=== PATIENT | male | born 1975 | race African-American/Black ===

== ENCOUNTER 2016-07-23 09:45 | Emergency (ER) | payer BC ==
[2016-07-23 10:49] VITALS: BP 149/90
--- NOTE | 2016-07-23 11:18 | UC ---
Shoulder Pain HPI - HPI Summary HPI Summary: The patient comes in today for: 1. Right shoulder pain: Onset: 2-3 hours ago. Palliative/provocative: Movement makes it worse. Quality: Ache. Region: Right shoulder. Severity: 5/10 Time: Constant. Associated symptoms: Event: He ran into a door frame at [employer] Rx: None. Previous shoulder problems on the right: None. * - History of Current Complaint Chief Complaint: UCUpperExtremity Stated Complaint: RIGHT SHOULDER INJURY Time Seen by Provider: 07/23/16 11:13 Hx Obtained From: Patient - Allergies/Home Medications Allergies/Adverse Reactions: Allergies Allergy/AdvReac Type Severity Reaction Status Date / Time Acetaminophen Allergy Intermediate Nausea Verified 07/23/16 10:49 [From Tylenol with Codeine #3] Codeine Allergy Intermediate Nausea Verified 07/23/16 10:49 [From Tylenol with Codeine #3] Penicillins Allergy Rash Verified 07/23/16 10:49 Bee stings Allergy Swelling Uncoded 07/23/16 10:49 Of Face,Lips,& Throat seasonal allergies Allergy Congestion Uncoded 07/23/16 10:49 Home Medications: Home Medications Simvastatin [Zocor 40 MG (NF)] 1 tab PO QPM 07/23/16 [History Confirmed 07/23/16 ] PMH/Surg Hx/FS Hx/Imm Hx Previously Healthy: No Endocrine History Of: Reports: Dyslipidemia Denies: Diabetes, Thyroid Disease, Hyperthyroidism, Hypothyroidism Cardiovascular History Of: Denies: Cardiac Disorders, Hypertension, Pacemaker/ICD, Myocardial Infarction , Congestive Heart Failure, Atrial Fibrillation, Deep Vein Thrombosis, Bleeding Disorders Respiratory History Of: Denies: COPD, Asthma, Bronchitis, Pneumonia, Pulmonary Embolism GI/ History Of: Denies: Gastroesophageal Reflux, Ulcer, Gastrointestinal Bleed, Gall Bladder Disease, Kidney Stones, Diverticulitis, Renal Disease, Urosepsis Neurological History Of: Reports: Migraine - "every now and then." Denies: TIA, CVA, Dementia, Seizures Psychological History Of: Denies: Anxiety, Depression, Bipolar Disorder, Schizophrenia, Post Traumatic Stress Disorder Cancer History Of: Denies: Lung Cancer, Colorectal Cancer, Breast Cancer, Prostate Cancer, Cervical Cancer Other History Of: Negative For: HIV, Hepatitis B, Hepatitis C, Anticoagulant Therapy - Surgical History Surgical History: Yes Surgery Procedure, Year, and Place: Left arm lumps age 20 - Family History Known Family History: Positive: Cardiac Disease, Hypertension, Diabetes - Social History Occupation: Employed Full-time Alcohol Use: Rare Substance Use Type: None Smoking Status (MU): Never Smoked Tobacco - Immunization History Most Recent Influenza Vaccination: Feb 2015 Review of Systems Constitutional: Negative Skin: Negative Eyes: Negative ENT: Negative Respiratory: Negative Cardiovascular: Negative Gastrointestinal: Negative Genitourinary: Negative Musculoskeletal: Arthralgia, Myalgia All Other Systems Reviewed And Are Negative: Yes Physical Exam Triage Information Reviewed: Yes Appearance: Well-Appearing, No Pain Distress - when sitting still., Well- Nourished Vital Signs: Initial Vital Signs Temp 98.8 F 07/23/16 10:40 Pulse 78 07/23/16 10:40 Resp 18 07/23/16 10:40 BP 149/90 07/23/16 10:40 Pulse Ox 100 07/23/16 10:40 Vital Signs Reviewed: Yes Eyes: Positive: Conjunctiva Clear. Negative: Discharge ENT: Positive: Hearing grossly normal, Pharynx normal, Pharyngeal erythema, TMs normal, TM bulging, TM dull. Negative: Tonsillar swelling, Tonsillar exudate Dental: Negative: Gross Decay/Caries @, Dental Fracture @ Neck: Positive: Supple, Nontender, No Lymphadenopathy. Negative: Nuchal Rigidity Respiratory: Positive: Chest non-tender, Lungs clear, No respiratory distress, No accessory muscle use, Rhonchi, Wheezing Cardiovascular: Positive: RRR, No Murmur Abdomen Description: Positive: Nontender, No Organomegaly, Soft, Distended, Guarding Musculoskeletal: Positive: ROM Limited @, Other: - Right shoulder: There is no ecchymosis, no edema. He is tender over the medial shoulder (medial deltoid), and some soreness along the clavicle, but no masses, hematomas. There was no tenderness of the sub-deltoid bursa area, or of the biceps tendon. There is tenderness to the trapezius, but again no masses or ecchymosis. There is reduction of abduction. NVI. Neurological: Positive: Alert, Muscle Tone Normal Psychological: Positive: Age Appropriate Behavior, Consolable Skin: Negative: rashes, breakdown Diagnostics - Radiology No standard instances Xray Interpretation: No Acute Changes - Right shoulder and clavicle. Radiology Interpretation Completed By: Radiologist Shoulder Course/Dx - Course Course Of Treatment: Patient told of his treatment options. He is to use a sling, take NSAIDS and see his primary care provider later this week. - Differential Dx/Diagnosis Differential Diagnosis/HQI/PQRI: Arthritis, Fracture (Closed), Sprain Provider Diagnoses: Right shoulder contusion. HIgh blood pressure. Discharge - Discharge Plan Condition: Stable Disposition: HOME Patient Education Materials: Shoulder Sprain (ED), Contusion in Adults (ED) Forms: *Work Release Referrals: Estevan Scruggs MD [Primary Care Provider] - (Please see your primary care provider later this week to see how well you are doing and to check your blood pressure. )
[2016-07-23] MEDS ORDERED: Naproxen TAB* 250 MG PO ONE (11:29)
--- NOTE | 2016-07-23 11:52 | RAD ---
HISTORY: Right shoulder pain, trauma COMPARISONS: None VIEWS: 3, Frontal internal rotation, external rotation, and outlet views of the right shoulder FINDINGS: BONE DENSITY: Normal. BONES: There is no displaced fracture. JOINTS: There is no arthropathy. ALIGNMENT: There is no dislocation. SOFT TISSUES: Unremarkable. OTHER FINDINGS: None. IMPRESSION: NO ACUTE OSSEOUS INJURY. IF SYMPTOMS PERSIST, RECOMMEND REPEAT IMAGING.
--- NOTE | 2016-07-23 11:53 | RAD ---
HISTORY: Right shoulder pain and trauma COMPARISONS: None VIEWS: 2, frontal and frontal oblique views of the right clavicle FINDINGS: BONE DENSITY: Normal. BONES: There is no displaced fracture. JOINTS: There is no arthropathy. ALIGNMENT: There is no dislocation. SOFT TISSUES: Unremarkable. OTHER FINDINGS: None. IMPRESSION: NO ACUTE OSSEOUS INJURY. IF SYMPTOMS PERSIST, RECOMMEND REPEAT IMAGING.
== END 2016-07-23 12:18 | disposition home or self-care (01) ==
LOC: UCCORT 09:45
DX: S40.011A Contusion of right shoulder, initial encounter (principal); W22.09XA Striking against other stationary object, initial encounter; Y93.9 Activity, unspecified; Y92.512 Supermarket, store or market as the place of occurrence of the external cause; Z88.6 Allergy status to analgesic agent; Z88.5 Allergy status to narcotic agent; Z88.0 Allergy status to penicillin; E78.5 Hyperlipidemia, unspecified
CPT/HCPCS: 99213; A9270-GY; G0463

== ENCOUNTER 2016-08-23 18:23 | Emergency (ER) | payer BC ==
[2016-08-23 18:40] VITALS: BP 142/93
--- NOTE | 2016-08-23 19:00 | UC ---
Headache HPI - HPI Summary HPI Summary: The patient comes in today for: 1. Headache (left temporal area), left neck "discomfort," and left otalgia: Onset: 1-2 hours ago. Palliative/provocative: Stress makes it worse. Quality: Ache Region: Left head Severity:3/10 Time: Constant. Associated symptoms: The patient states that he is going through turbulent times with his . It is very tense. Treatment: He has not taken anything at this time. * - History Of Current Complaint Chief Complaint: UCGeneralIllness Stated Complaint: ELAVATED BLOOD PRESSURE Time Seen by Provider: 08/23/16 18:52 Hx Obtained From: Patient - Allergies/Home Medications Allergies/Adverse Reactions: Allergies Allergy/AdvReac Type Severity Reaction Status Date / Time Codeine Allergy Intermediate Nausea Verified 08/23/16 18:40 [From Tylenol with Codeine #3] Penicillins Allergy Rash Verified 08/23/16 18:40 Bee stings Allergy Swelling Uncoded 08/23/16 18:40 Of Face,Lips,& Throat seasonal allergies Allergy Congestion Uncoded 08/23/16 18:40 PMH/Surg Hx/FS Hx/Imm Hx Previously Healthy: Yes Endocrine History Of: Reports: Dyslipidemia Denies: Diabetes, Thyroid Disease, Hyperthyroidism, Hypothyroidism Cardiovascular History Of: Denies: Cardiac Disorders, Hypertension, Pacemaker/ICD, Myocardial Infarction , Congestive Heart Failure, Atrial Fibrillation, Deep Vein Thrombosis, Bleeding Disorders Respiratory History Of: Denies: COPD, Asthma, Bronchitis, Pneumonia, Pulmonary Embolism GI/ History Of: Denies: Gastroesophageal Reflux, Ulcer, Gastrointestinal Bleed, Gall Bladder Disease, Kidney Stones, Diverticulitis, Renal Disease, Urosepsis Neurological History Of: Reports: Migraine - "every now and then." Denies: TIA, CVA, Dementia, Seizures Psychological History Of: Denies: Anxiety, Depression, Bipolar Disorder, Schizophrenia, Post Traumatic Stress Disorder Cancer History Of: Denies: Lung Cancer, Colorectal Cancer, Breast Cancer, Prostate Cancer, Cervical Cancer Other History Of: Negative For: HIV, Hepatitis B, Hepatitis C, Anticoagulant Therapy - Surgical History Surgical History: Yes Surgery Procedure, Year, and Place: Left arm lumps age 20 - Family History Known Family History: Positive: Cardiac Disease, Hypertension, Diabetes - Social History Alcohol Use: Rare Substance Use Type: None Smoking Status (MU): Never Smoked Tobacco - Immunization History Most Recent Influenza Vaccination: Feb 2015 Review of Systems Constitutional: Negative Skin: Negative Eyes: Negative ENT: Negative Respiratory: Negative Cardiovascular: Negative Gastrointestinal: Negative Genitourinary: Negative Neurological: Headache All Other Systems Reviewed And Are Negative: Yes Physical Exam Triage Information Reviewed: Yes Appearance: Well-Appearing, No Pain Distress, Well-Nourished Vital Signs: Initial Vital Signs Temp 98.3 F 08/23/16 18:27 Pulse 88 08/23/16 18:27 Resp 20 08/23/16 18:27 BP 142/93 08/23/16 18:27 Pulse Ox 97 08/23/16 18:27 Vital Signs Reviewed: Yes Eyes: Positive: Conjunctiva Clear. Negative: Discharge ENT: Positive: Hearing grossly normal. Negative: Pharyngeal erythema, Nasal congestion, Nasal drainage, TM bulging, TM dull, TM red, Tonsillar swelling, Tonsillar exudate - Ears: TM dsouza and translucent bilaterally. Dental: Negative: Gross Decay/Caries @, Dental Fracture @ Neck: Positive: Supple, Nontender, No Lymphadenopathy, Other: - He had soreness to palpation of the left neck. But, othe than only a few normal-sized, tender lymph nodes, there were no other problems noted--masses or lesions.. Negative: Nuchal Rigidity Respiratory: Positive: Lungs clear, No respiratory distress, No accessory muscle use. Negative: Crackles, Wheezing Cardiovascular: Positive: RRR, No Murmur Abdomen Description: Positive: Nontender, No Organomegaly, Soft. Negative: Distended, Guarding Musculoskeletal: Positive: Strength Intact, ROM Intact, No Edema Neurological: Positive: Alert, Muscle Tone Normal Psychological: Positive: Age Appropriate Behavior, Consolable Skin: Negative: rashes, breakdown Headache Course/Dx - Course Course Of Treatment: Patient was very concerned about the blood pressure value. But, he was given reassurance that even though it is high enough to roman into treatment. He was told to avoid salt, get regular brisk walking/exercise and follow up with his primary care provider. He was given the option of Naproxen for his headache and neck soreness, but he stated that he had naproxen at home which he can use. - Differential Dx/Diagnosis Provider Diagnoses: Headache. high blood pressure. Sore left neck. Discharge - Discharge Plan Condition: Stable Disposition: HOME Patient Education Materials: Hypertensive Crisis (ED), Low Sodium Diet (ED), DASH Eating Plan (ED), General Headache (ED) Referrals: Estevan Scruggs MD [Primary Care Provider] - 1 Week (Please see your primary care provider in about one to two weeks to see how well you are doing. If you get worse, please be seen sooner.)
== END 2016-08-23 19:23 | disposition home or self-care (01) ==
LOC: UCCORT 18:23
DX: R51 Headache (principal); H92.02 Otalgia, left ear; R03.0 Elevated blood-pressure reading, without diagnosis of hypertension; E78.5 Hyperlipidemia, unspecified; Z88.0 Allergy status to penicillin; Z88.5 Allergy status to narcotic agent; Z91.030 Bee allergy status
CPT/HCPCS: 99211; G0463

== ENCOUNTER 2017-06-06 14:19 | Emergency (ER) | payer BC ==
[2017-06-06] MEDS ORDERED: Ketorolac INJ* 60 MG/2 ML VIAL IM ONE (15:32)
[2017-06-06] MEDS ORDERED: Ondansetron ODT TAB* 4 MG PO ONE (15:32)
--- NOTE | 2017-06-06 16:13 | UC ---
Headache HPI - HPI Summary HPI Summary: Pt here w/ GURROLA this morning at 4am. Started on Rt side of head and moving around eye and into central forehead. Dull but constant. Associated sx of nausea and photophobia. Admits to h/o migraines and this feels the same but is lasting longer than usual. Reports he typically takes excederin as soon as sx present and after resting an hour in a dark area, he's better. This time he did not have excederin so took acetaminophen w/o much relief. Believes his triggers could be drinking coffee, lack of water, and/or stress. Denies URI sx otherwise (ie. fever, chills, neck pain/stiffness, rhinorrhea, cough, sneezing, etc) and no neuro deficits. Also concerned as he has a fam h/o HTN. Went to drug store to check BP and it was 148/102. He reports feeling a little better since here and drinking water - BP is in a safe range at this time. Denies change in vision, chest pain, SOB, jaw pain, arm pain, fatigue. No personal h/o HTN, RI, CVA or TIA. - History Of Current Complaint Chief Complaint: UCHeadache Stated Complaint: HEADACHE, NAUSEA Time Seen by Provider: 06/06/17 15:20 Hx Obtained From: Patient Pain Intensity: 7 - Allergies/Home Medications Allergies/Adverse Reactions: Allergies Allergy/AdvReac Type Severity Reaction Status Date / Time codeine Allergy Nausea Verified 06/06/17 15:18 Penicillins Allergy Rash Verified 06/06/17 15:18 Bee stings Allergy Swelling Uncoded 06/06/17 15:18 Of Face,Lips,& Throat seasonal allergies Allergy Congestion Uncoded 06/06/17 15:18 Home Medications: Home Medications Acetaminophen TAB* [Tylenol TAB*] 650 mg PO Q4H PRN 06/06/17 [History Confirmed 06/06/17] PMH/Surg Hx/FS Hx/Imm Hx Previously Healthy: Yes Other History Of: Negative For: HIV, Hepatitis B, Hepatitis C, Anticoagulant Therapy - Surgical History Surgical History: Yes Surgery Procedure, Year, and Place: Left arm lumps age 20 - Family History Known Family History: Positive: Cardiac Disease, Hypertension, Diabetes - Social History Occupation: Employed Full-time Lives: With Family Alcohol Use: Occasionally Substance Use Type: None Smoking Status (MU): Never Smoked Tobacco - Immunization History Most Recent Influenza Vaccination: Feb 2015 Review of Systems Constitutional: Negative Skin: Negative Eyes: Photophobia ENT: Negative Respiratory: Negative Cardiovascular: Negative Gastrointestinal: Nausea Motor: Negative Neurovascular: Negative Musculoskeletal: Negative Neurological: Headache Psychological: Other - stressed Is Patient Immunocompromised?: No All Other Systems Reviewed And Are Negative: Yes Physical Exam Triage Information Reviewed: Yes Appearance: Pain Distress - apepars to be in mild to moderate distress, sitting upright in dark room, Obese Vital Signs: Initial Vital Signs Temp 97.3 F 06/06/17 15:10 Pulse 71 06/06/17 15:10 Resp 16 06/06/17 15:10 BP 136/84 06/06/17 15:10 Pulse Ox 100 06/06/17 15:10 Vital Signs Reviewed: Yes Eyes: Positive: Conjunctiva Clear - mild photophobia ENT Exam: Normal ENT: Positive: Normal ENT inspection, Hearing grossly normal, Pharynx normal, TMs normal. Negative: Nasal congestion, Nasal drainage Dental Exam: Normal Dental: Negative: Abscess @ Neck exam: Normal Neck: Positive: Supple, Nontender, No Lymphadenopathy Respiratory Exam: Normal Respiratory: Positive: Lungs clear Cardiovascular Exam: Normal Cardiovascular: Positive: RRR Abdominal Exam: Normal Abdomen Description: Positive: Nontender, No Organomegaly, Soft Musculoskeletal Exam: Normal Musculoskeletal: Positive: Strength Intact, ROM Intact Neurological Exam: Normal, Other - CN II-XII grossly intact, facial symmetry, finger to nose intact, no slurred speech, no pronator drift Neurological: Positive: Alert, Muscle Tone Normal Psychological Exam: Normal Skin Exam: Normal Re-Evaluation - Re-Evaluation First Eval Change: Improved - GURROLA improving and nausea resolved s/p meds - pt ready to go home Headache Course/Dx - Course Course Of Treatment: Pt presents w/ lingering unilateral GURROLA which he believes is migraine (see HPI for details). No neuro deficits and vitals WNL here today although he reports elevated BP at drug store earlier today. Improved w/ zofran and toradol and tolerting PO liquids. Advised close f/u w/ PCP to recheck BP. Reviewed danger s/sx w/ pt and prior to d/c. - Differential Dx/Diagnosis Provider Diagnoses: Migraine. Elevated BP Discharge - Discharge Plan Condition: Stable Disposition: HOME Prescriptions: Ondansetron ODT TAB* [Zofran 4 MG Odt TAB*] 8 mg PO Q8H PRN #6 tab.odt PRN Reason: Nausea Patient Education Materials: Migraine Headache (ED), Hypertension (ED) Forms: *Work Release Referrals: Estevan Scruggs MD [Primary Care Provider] - Additional Instructions: Rest, hydrate and keep acetaminophen on hand for future migraines. Avoid triggers when possible. Follow-up with PCP if these interfere with quality of life. Your blood pressure appears to be okay here today however you had a high read earlier today at a drug store. You may continue to monitor and follow-up with PCP next week for recheck. If >180/100 or return of headache without relief with medications, chest pain, shortness of breath, fatigue, nausea, sweating, jaw or arm pain, weakness, syncope, return to ED
[2017-06-06 16:30] VITALS: BP 150/78
== END 2017-06-06 16:44 | disposition home or self-care (01) ==
LOC: UCCORT 14:19
DX: G43.909 Migraine, unspecified, not intractable, without status migrainosus (principal); I10 Essential (primary) hypertension; Z88.5 Allergy status to narcotic agent; Z88.0 Allergy status to penicillin
CPT/HCPCS: 96372; 99212; A9270-GY; G0463; J1885

== ENCOUNTER 2018-01-14 14:20 | Emergency (ER) | payer BC ==
[2018-01-14 15:41] VITALS: BP 136/84
--- NOTE | 2018-01-14 16:59 | ED ---
Throat Pain/Nasal Congestion - HPI Summary HPI Summary: pt presents to the for evaluation of his mild head pressure, sinus congestion , and body aches. pt's has bronchitis - History of Current Complaint Chief Complaint: UCGeneralIllness Hx Obtained From: Patient Onset/Duration: Gradual Onset - 2 days Severity: Mild - Epiglottits Risk Factors Epiglottis Risk Factors: Negative - Allergies/Home Medications Allergies/Adverse Reactions: Allergies Allergy/AdvReac Type Severity Reaction Status Date / Time codeine Allergy Nausea Verified 01/14/18 15:41 Penicillins Allergy Rash Verified 01/14/18 15:41 Bee stings Allergy Swelling Uncoded 01/14/18 15:41 Of Face,Lips,& Throat seasonal allergies Allergy Congestion Uncoded 01/14/18 15:41 Home Medications: Home Medications NK [No Home Medications Reported] 01/14/18 [History Confirmed 01/14/18] PMH/Surg Hx/FS Hx/Imm Hx Previously Healthy: Yes Endocrine/Hematology History: Denies: Hx Anticoagulant Therapy, Hx Diabetes, Hx Thyroid Disease Cardiovascular History: Reports: Hx Hypertension - not on meds Denies: Hx Congestive Heart Failure, Hx Deep Vein Thrombosis, Hx Myocardial Infarction, Hx Pacemaker/ICD Respiratory History: Denies: Hx Asthma, Hx Chronic Obstructive Pulmonary Disease (COPD), Hx Lung Cancer, Hx Pneumonia, Hx Pulmonary Embolism GI History: Denies: Hx Gall Bladder Disease, Hx Gastroesophageal Reflux Disease, Hx Gastrointestinal Bleed, Hx Ulcer, Hx Urosepsis History: Denies: Hx Acute Renal Failure, Hx Kidney Stones, Hx Renal Disease Musculoskeletal History: Denies: Hx Arthritis Sensory History: Denies: Hx Hearing Aid Neurological History: Reports: Hx Migraine - "every now and then." Denies: Hx Dementia, Hx Seizures, Hx Transient Ischemic Attacks (TIA) Psychiatric History: Denies: Hx Anxiety, Hx Depression, Hx Panic Disorder, Hx Schizophrenia, Hx Bipolar Disorder - Surgical History Surgery Procedure, Year, and Place: Left arm lumps age 20 Infectious Disease History: No Infectious Disease History: Denies: Traveled Outside the [place] in Last 30 Days - Family History Known Family History: Positive: Cardiac Disease, Hypertension, Diabetes - Social History Alcohol Use: Occasionally Substance Use Type: Reports: None Smoking Status (MU): Never Smoked Tobacco Review of Systems Positive: Chills, Fatigue Negative: Photophobia, Blurred Vision, Diplopia, Drainage Positive: Other - sinus congestion Respiratory: Negative Gastrointestinal: Negative Genitourinary: Negative Musculoskeletal: Negative Skin: Negative Positive: Headache All Other Systems Reviewed And Are Negative: No Physical Exam Triage Information Reviewed: Yes Vital Signs On Initial Exam: Initial Vitals Temp Pulse Resp BP Pulse Ox 97.9 F 77 20 136/84 99 01/14/18 15:36 01/14/18 15:36 01/14/18 15:36 01/14/18 15:36 01/14/18 15:36 Vital Signs Reviewed: Yes Appearance: Positive: Well-Appearing, No Pain Distress, Well-Nourished Skin: Positive: Warm, Dry Head/Face: Positive: Normal Head/Face Inspection Eyes: Positive: Normal, EOMI, [place] ENT: Positive: Normal ENT inspection, Hearing grossly normal, Pharynx normal Neck: Positive: Supple, Nontender Respiratory/Lung Sounds: Positive: Clear to Auscultation, Breath Sounds Present Cardiovascular: Positive: Normal, RRR Abdomen Description: Positive: Nontender, Soft Bowel Sounds: Positive: Present Musculoskeletal: Positive: Normal, Strength/ROM Intact Neurological: Positive: Normal, Sensory/Motor Intact, CN Intact II-III Psychiatric: Positive: Normal AVPU Assessment: Alert Diagnostics - Vital Signs Vital Signs Temp Pulse Resp BP Pulse Ox 01/14/18 15:36 97.9 F 77 20 136/84 99 - Laboratory Lab Results: Lab Results 01/14/18 Range/Units 16:29 Influenza A (Rapid) Negative (Negative) Influenza B (Rapid) Negative (Negative) Lab Statement: Any lab studies that have been ordered have been reviewed, and results considered in the medical decision making process. EENT Course/Dx - Course Course Of Treatment: flu a/b negative. discussed symptomatic treatment. - Differential Diagnoses Differential Diagnoses: Pharyngitis, Sinusitis, Other - viral syndrome - Diagnoses Provider Diagnoses: Upper respiratory infection, Upper respiratory infection, viral Discharge - Sign-Out/Discharge Documenting (check all that apply): Patient Departure All imaging exams completed and their final reports reviewed: Yes - Discharge Plan Condition: Stable Disposition: HOME Patient Education Materials: Upper Respiratory Infection (ED) Referrals: Estevan Scruggs MD [Primary Care Provider] - Additional Instructions: Take tylenol, motrin, theraflu, sudafed, and vitamins as instructed. drink plenty of fluids. get plenty of sleep. wash your hands well. return if worse or any new symptoms. - Billing Disposition and Condition Condition: STABLE Disposition: Home
== END 2018-01-14 17:06 | disposition home or self-care (01) ==
LOC: UCCORT 14:20
DX: J06.9 Acute upper respiratory infection, unspecified (principal); Z88.0 Allergy status to penicillin; Z88.5 Allergy status to narcotic agent
CPT/HCPCS: 99211; G0463

== ENCOUNTER 2018-02-20 09:33 | Emergency (ER) | payer BC ==
[2018-02-20 10:30] VITALS: BP 137/89
--- NOTE | 2018-02-20 10:49 | UC ---
FLU HPI - HPI Summary HPI Summary: pt c/o cough, nasal congestion, chest congestion, malaise, bilateral ear ache fatigue X 2- 3 days. - History of Current Complaint Chief Complaint: UCRespiratory Stated Complaint: CONGESTION,COUGH Time Seen by Provider: 02/20/18 10:33 Hx Obtained From: Patient Onset/Duration: Gradual Onset, Lasting Days, Still Present Severity Currently: Mild Severity Initially: Mild Pain Intensity: 2 Associated Signs & Symptoms: Positive: Myalgia, Cough, Nasal Congestion Related Hx: Possible Flu/Infectious Exposure - Risk Factors Influenza Risk Factors: Negative - Allergy/Home Medications Allergies/Adverse Reactions: Allergies Allergy/AdvReac Type Severity Reaction Status Date / Time codeine Allergy Nausea Verified 02/20/18 10:23 Penicillins Allergy Rash Verified 02/20/18 10:23 Bee stings Allergy Swelling Uncoded 02/20/18 10:23 Of Face,Lips,& Throat seasonal allergies Allergy Congestion Uncoded 02/20/18 10:23 Home Medications: Home Medications D-Methorphan/PE/Acetaminophen [Vicks Dayquil Liquicaps] 1 cap PO PRN 02/20/18 [ History] PMH/Surg Hx/FS Hx/Imm Hx Previously Healthy: Yes Other History Of: Negative For: HIV, Hepatitis B, Hepatitis C, Anticoagulant Therapy - Surgical History Surgical History: Yes Surgery Procedure, Year, and Place: Left arm lumps age 20 - Family History Known Family History: Positive: Cardiac Disease, Hypertension, Diabetes - Social History Occupation: Employed Full-time Lives: With Family Alcohol Use: Rare Substance Use Type: None Smoking Status (MU): Never Smoked Tobacco Have You Smoked in the Last Year: No - Immunization History Most Recent Influenza Vaccination: Feb 2015 Review of Systems All Other Systems Reviewed And Are Negative: Yes Constitutional: Positive: Chills, Fatigue Skin: Positive: Negative Eyes: Positive: Negative ENT: Positive: Sore Throat, Ear Ache Respiratory: Positive: Cough Cardiovascular: Positive: Negative Gastrointestinal: Positive: Negative Genitourinary: Positive: Negative Motor: Positive: Negative Neurovascular: Positive: Negative Musculoskeletal: Positive: Myalgia Neurological: Positive: Negative Psychological: Positive: Negative Is Patient Immunocompromised?: No Physical Exam Triage Information Reviewed: Yes Appearance: Well-Appearing Vital Signs: Initial Vital Signs Temp 97.3 F 02/20/18 10:25 Pulse 68 11/08/18 10:25 Resp 16 02/20/18 10:25 BP 137/89 02/20/18 10:25 Pulse Ox 100 02/20/18 10:25 Vital Signs Reviewed: Yes Eye Exam: Normal ENT: Positive: Nasal congestion, TM bulging - left, TM red - left Dental Exam: Normal Neck exam: Normal Respiratory Exam: Normal Cardiovascular Exam: Normal Musculoskeletal Exam: Normal Neurological Exam: Normal Psychological Exam: Normal Skin Exam: Normal Flu Course/Dx - Differential Dx/Diagnosis Differential Diagnosis/HQI/PQRI: Influenza, Upper Respiratory Infection Provider Diagnoses: left OM Discharge - Sign-Out/Discharge Documenting (check all that apply): Patient Departure All imaging exams completed and their final reports reviewed: No Studies - Discharge Plan Condition: Stable Disposition: HOME Prescriptions: Azithromycin TAB* [Zithromax TAB (Z-FAMILIA) 250 mg #6 tabs] 2 tab PO .TODAY, THEN 1 DAILY #1 familia Patient Education Materials: Ear Infection (ED) Referrals: Estevan Scruggs MD [Primary Care Provider] - If Needed - Billing Disposition and Condition Condition: STABLE Disposition: Home
== END 2018-02-20 10:59 | disposition home or self-care (01) ==
LOC: UCCORT 09:33
DX: H66.92 Otitis media, unspecified, left ear (principal); R05 Cough; R09.81 Nasal congestion; R09.89 Other specified symptoms and signs involving the circulatory and respiratory systems; R53.81 Other malaise; H92.01 Otalgia, right ear; Z88.5 Allergy status to narcotic agent; Z88.0 Allergy status to penicillin; Z91.030 Bee allergy status; Z91.048 Other nonmedicinal substance allergy status
CPT/HCPCS: 99212; G0463

== ENCOUNTER 2018-04-21 08:37 | Emergency (ER) | payer BC ==
--- NOTE | 2018-04-21 08:48 | UC ---
Respiratory Complaint HPI - HPI Summary HPI Summary: 43 y/o male presents to the urgent care c/o chest congestion and productive cough w/ green phlegm for the past 2 weeks. Pt reports symptoms started w/ nasal congestion and nasal discharge, GURROLA. Isiah purcellas been taking Robitussin PO to alleviate symptoms. His recently Dx w/ Sinusitis and Rx antibiotics. For the past 3 days he has been w/ body aches, chills, SOB at times. Pt denies fever , wheezing, chest pain,abdominal pain, N/V/d. - History of Current Complaint Stated Complaint: CONGESTION Time Seen by Provider: 04/21/18 08:47 Hx Obtained From: Patient Onset/Duration: Gradual Onset, Lasting Weeks - 2 weeks Timing: Intermittent Episodes Severity Initially: Mild Severity Currently: Moderate Pain Intensity: 4 Pain Scale Used: 0-10 Numeric Character: Cough: Productive, Sputum Description: - green Aggravating Factors: Recumbent Position Alleviating Factors: OTC Meds Associated Signs And Symptoms: Positive: Dyspnea - at times since yesterday, Chills, URI, Nasal Congestion, Sinus Discomfort. Negative: Fever, Wheezing, Hoarseness - Risk Factors Pulmonary Embolism Risk Factors: Negative Cardiac Risk Factors: Negative Pseudomonas Risk Factors: Negative Tuberculosis Risk Factors: Negative - Allergies/Home Medications Allergies/Adverse Reactions: Allergies Allergy/AdvReac Type Severity Reaction Status Date / Time codeine Allergy Nausea Verified 04/21/18 08:52 Penicillins Allergy Rash Verified 04/21/18 08:52 Bee stings Allergy Swelling Uncoded 04/21/18 08:52 Of Face,Lips,& Throat seasonal allergies Allergy Congestion Uncoded 04/21/18 08:52 Home Medications: Home Medications Guaifenesin/Dextromethorphan [Robitussin Iszkt-Cihuh-Ilnp Dm] 1 cap PO PRN 04/21 [History] PMH/Surg Hx/FS Hx/Imm Hx Previously Healthy: Yes - Pt denies PMHX Other History Of: Negative For: HIV, Hepatitis B, Hepatitis C, Anticoagulant Therapy - Surgical History Surgical History: Yes Surgery Procedure, Year, and Place: Left arm lumps age 20 - Family History Known Family History: Positive: Cardiac Disease, Hypertension, Diabetes - Social History Occupation: Employed Full-time Lives: With Family Alcohol Use: Rare Substance Use Type: None Smoking Status (MU): Never Smoked Tobacco Have You Smoked in the Last Year: No - Immunization History Most Recent Influenza Vaccination: Feb 2015 Review of Systems All Other Systems Reviewed And Are Negative: Yes Constitutional: Positive: Chills, Fatigue, Other - body aches Skin: Positive: Negative Eyes: Positive: Negative ENT: Positive: Nasal Discharge, Sinus Congestion, Sinus Pain/Tenderness Respiratory: Positive: Shortness Of Breath - sice yesterday, Cough - productive w/ green phlegm Cardiovascular: Positive: Negative Gastrointestinal: Positive: Negative Genitourinary: Positive: Negative Motor: Positive: Negative Neurovascular: Positive: Negative Musculoskeletal: Positive: Negative Neurological: Positive: Headache Psychological: Positive: Negative Is Patient Immunocompromised?: No Physical Exam - Summary Physical Exam Summary: Vital Signs Reviewed: Yes General: well developed, well nourished male sitting in the examining table w/o any apparent distress Eyes: Positive: Conjunctiva Clear - PERRLA, EOMI, fundi grossly normal ENT: Positive: Normal ENT inspection, Hearing grossly normal, Pharynx normal, Nasal congestion - edematous and erythematous nasal mucosa, Nasal drainage - yellowish drainage, TMs normal. Negative: Tonsillar swelling, Tonsillar exudate Neck: Positive: Supple, Nontender, No Lymphadenopathy Respiratory: no orthopnea or dyspnea. Able to speak in full sentences, no retractions or accessory muscle use, no tripod position, stridor, or head bobbing. Positive breath sounds bilaterally. diffuse scattered rhonchi on b/L lungs, no wheezes, no crackles or rales. Cardiovascular: Positive: RRR, No Murmur, Pulses Normal, Brisk Capillary Refill Abdomen Description: Positive: Nontender, No Organomegaly, Soft. Negative: CVA Tenderness (R), CVA Tenderness (L) Bowel Sounds: Positive: Present Musculoskeletal Exam: Normal Musculoskeletal: Positive: Strength Intact, ROM Intact, No Edema Neurological Exam: Normal Psychological Exam: Normal Skin Exam: Normal Triage Information Reviewed: Yes Respiratory Course/Dx - Course Course Of Treatment: 43 y/o male presents to the urgent care c/o chest congestion and productive cough w/ green phlegm for the past 2 weeks. Pt reports symptoms started w/ nasal congestion and nasal discharge, GURROLA. H ehas been taking Robitussin PO to alleviate symptoms. His recently Dx w/ Sinusitis and Rx antibiotics. For the past 3 days he has been w/ body aches, chills, SOB at times. Pt denies fever, wheezing, chest pain,abdominal pain, N/V/ d. Hx obtained. Pt w/ BL lungs w/ scattered rhonchi. chest X-ray ordered: no acute cardiopulmonary disease observed as per radiologist. Pt w/ 2 weeks of symptoms Pt will be Tx as Acute bronchitis on examination. Pt Rx Doxycycline PO and Albuterol inhaler to alleviate bronchospasm. Pt advised to increase fluid intake and eat well. if not improvement or worsening of symptoms to return to the urgent care or f/u with PCP for further management.Pt's BP is elevated today advised to decrease salt in diet, monitor BP and f/u with PCP for further management. Pt understood and agreed with plan of care. - Differential Dx/Diagnosis Differential Diagnosis/HQI/PQRI: Bronchitis, Influenza, Lower Resp Infection, Sinusitis, Other - pneumonia Provider Diagnosis: Acute bronchitis, Elevated BP without diagnosis of hypertension Discharge - Sign-Out/Discharge Documenting (check all that apply): Patient Departure - d/c home All imaging exams completed and their final reports reviewed: Yes - Discharge Plan Condition: Stable Disposition: HOME Prescriptions: Albuterol HFA INHALER* [Ventolin HFA Inhaler*] 1 - 2 puff INH Q6H PRN #1 mdi PRN Reason: Cough DOXYcycline CAP(*) [DOXYcycline 100MG CAP(*)] 100 mg PO BID #20 cap Patient Education Materials: Acute Bronchitis (ED), Low-Sodium Diet (ED) Referrals: Estevan Scruggs MD [Primary Care Provider] - 3 Days Additional Instructions: 1-Please take full course of antibiotic to avoid resistance. 2-Continue taking Robitussin PO and use the Albuterol inhaler to alleviate cough. Increase fluid intake, rest and eat well. Avoid strenuous exercise. 3- If symptoms worsen despite taking antibiotics and you develop SOB with fever and wheezing please go immediately to the ER further evaluation and treatment. 4- Please F/u with your PCP in 3 days if not improvement of symptoms for further management. 5- Your BP is elevated today. please decrease salt in your diet, monitor BP and if it continues to be elevated please f/u with your PCP for further management - Billing Disposition and Condition Condition: STABLE Disposition: Home
[2018-04-21 08:52] VITALS: BP 144/89
== END 2018-04-21 09:54 | disposition home or self-care (01) ==
LOC: UCCORT 08:37
DX: J20.9 Acute bronchitis, unspecified (principal); R03.0 Elevated blood-pressure reading, without diagnosis of hypertension; Z88.5 Allergy status to narcotic agent
CPT/HCPCS: 71046; 99212; G0463

== ENCOUNTER 2018-06-05 14:33 | Emergency (ER) | payer BC ==
[2018-06-05 14:58] VITALS: BP 132/90
--- NOTE | 2018-06-05 15:06 | UC ---
Respiratory Complaint HPI - HPI Summary HPI Summary: cough x 5 days nasal congestion, sinus pressure cough is dry and harsh, + pnd no fever, + chills and body aches - History of Current Complaint Chief Complaint: UCGeneralIllness Stated Complaint: WEAK,NAUSEA,CONGESTION Time Seen by Provider: 06/05/18 14:59 Hx Obtained From: Patient Onset/Duration: Gradual Onset, Lasting Days - 5, Still Present Timing: Constant Severity Initially: Moderate Severity Currently: Moderate Pain Intensity: 6 Character: Cough: Nonproductive Aggravating Factors: Exertion, Deep Breaths Associated Signs And Symptoms: Positive: Chills, URI, Nasal Congestion. Negative: Dyspnea, Fever, Wheezing, Hemoptysis, Dizziness, Calf Pain, Calf Swelling, Edema - Allergies/Home Medications Allergies/Adverse Reactions: Allergies Allergy/AdvReac Type Severity Reaction Status Date / Time codeine Allergy Nausea Verified 04/21/18 08:52 Penicillins Allergy Rash Verified 04/21/18 08:52 Bee stings Allergy Swelling Uncoded 04/21/18 08:52 Of Face,Lips,& Throat seasonal allergies Allergy Congestion Uncoded 04/21/18 08:52 Home Medications: Home Medications NK [No Home Medications Reported] 06/05/18 [History Confirmed 06/05/18] PMH/Surg Hx/FS Hx/Imm Hx Cardiovascular History: Hypertension Other History Of: Negative For: HIV, Hepatitis B, Hepatitis C, Anticoagulant Therapy - Surgical History Surgical History: Yes Surgery Procedure, Year, and Place: Left arm lumps age 20 - Family History Known Family History: Positive: Cardiac Disease, Hypertension, Diabetes - Social History Alcohol Use: Rare Substance Use Type: None Smoking Status (MU): Never Smoked Tobacco Have You Smoked in the Last Year: No - Immunization History Most Recent Influenza Vaccination: Feb 2015 Review of Systems All Other Systems Reviewed And Are Negative: Yes Constitutional: Positive: Chills, Fatigue Skin: Positive: Negative Eyes: Positive: Negative ENT: Positive: Sore Throat, Nasal Discharge, Sinus Congestion, Sinus Pain/ Tenderness Respiratory: Positive: Cough Cardiovascular: Positive: Negative Is Patient Immunocompromised?: No Physical Exam Triage Information Reviewed: Yes Appearance: Well-Appearing, No Pain Distress, Well-Nourished Vital Signs: Initial Vital Signs Temp 97.8 F 06/05/18 14:55 Pulse 79 06/05/18 14:55 Resp 20 06/05/18 14:55 BP 132/90 06/05/18 14:55 Pulse Ox 100 06/05/18 14:55 Vital Signs Reviewed: Yes Eye Exam: Normal Eyes: Positive: Conjunctiva Clear ENT: Positive: Normal ENT inspection, Hearing grossly normal, Pharynx normal, Nasal congestion Neck: Positive: Supple, Nontender, No Lymphadenopathy Respiratory: Positive: Chest non-tender, Lungs clear, Normal breath sounds Cardiovascular: Positive: RRR, No Murmur, Pulses Normal Skin Exam: Normal UC Diagnostic Evaluation - Laboratory O2 Sat by Pulse Oximetry: 100 Respiratory Course/Dx - Differential Dx/Diagnosis Provider Diagnosis: URI (upper respiratory infection) Discharge - Sign-Out/Discharge Documenting (check all that apply): Patient Departure All imaging exams completed and their final reports reviewed: No Studies - Discharge Plan Condition: Stable Disposition: HOME Patient Education Materials: Upper Respiratory Infection (DC) Referrals: Estevan Scruggs MD [Primary Care Provider] - If Needed - Billing Disposition and Condition Condition: STABLE Disposition: Home
[2018-06-05 15:25] LABS: Influenza A Molecular NEGATIVE (Negative); Influenza B Molecular NEGATIVE (Negative)
--- NOTE | 2018-06-05 15:28 | UC ---
- Progress Note Progress Note: Patient requesting flu testing after primary provider had discharged patient and left for the day. A rapid flu was ordered and was negative. Patient was notified of results and is to continue with POC as discussed. Course/Dx - Diagnoses Provider Diagnoses: URI (upper respiratory infection) Discharge - Sign-Out/Discharge Documenting (check all that apply): Patient Departure All imaging exams completed and their final reports reviewed: No Studies - Discharge Plan Condition: Stable Disposition: HOME Patient Education Materials: Upper Respiratory Infection (DC) Referrals: Estevan Scruggs MD [Primary Care Provider] - If Needed - Billing Disposition and Condition Condition: STABLE Disposition: Home
== END 2018-06-05 15:28 | disposition home or self-care (01) ==
LOC: UCCORT 14:33
DX: J06.9 Acute upper respiratory infection, unspecified (principal); I10 Essential (primary) hypertension; Z88.5 Allergy status to narcotic agent; Z88.0 Allergy status to penicillin; Z91.030 Bee allergy status; Z91.09 Other allergy status, other than to drugs and biological substances
CPT/HCPCS: 99211; G0463

== ENCOUNTER 2018-12-29 16:26 | Emergency (ER) | payer BC ==
[2018-12-29 18:23] VITALS: BP 139/83
--- NOTE | 2018-12-29 18:39 | UC ---
Shoulder Pain HPI - HPI Summary HPI Summary: 43-year-old male presents with complaints of right shoulder pain. States 5 days ago had minor shoulder pain while weight lifting that subsided by the next day. 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 Pain persisted this morning and patient took ibuprofen 800 mg with little relief in pain. States the pain progressively worsened throughout the day. Took some acetaminophen approximately 2 hours prior to arrival with no improvement in his pain. No previous or current injury. States pain worsens with any type of movement but is especially worse with abduction and external rotation. Denies chest pain, SOB, abdominal pain, nausea , vomiting, numbness or tingling. - History of Current Complaint Chief Complaint: UCUpperExtremity Stated Complaint: LT SHOULDER INJURY Time Seen by Provider: 12/29/18 18:11 Hx Obtained From: Patient Pain Intensity: 6 - Allergies/Home Medications Allergies/Adverse Reactions: Allergies Allergy/AdvReac Type Severity Reaction Status Date / Time Penicillins Allergy Rash Verified 04/21/18 08:52 codeine AdvReac Nausea Verified 12/29/18 18:23 lorazepam AdvReac Vomiting Verified 12/29/18 18:23 Home Medications: Home Medications Acetaminophen [Acetaminophen Extra Strength] 1,000 mg PO ONCE PRN 12/29/18 [ History Confirmed 12/29/18] Ibuprofen TAB* [Advil TAB*] 800 mg PO Q6H PRN 12/29/18 [History Confirmed ] PMH/Surg Hx/FS Hx/Imm Hx Previously Healthy: Yes - Denies significant PMH Other History Of: Negative For: HIV, Hepatitis B, Hepatitis C, Anticoagulant Therapy - Surgical History Surgical History: Yes Surgery Procedure, Year, and Place: Left arm lumps age 20 - Family History Known Family History: Positive: Cardiac Disease, Hypertension, Diabetes - Social History Occupation: Employed Full-time Lives: With Family Alcohol Use: Rare Substance Use Type: None Smoking Status (MU): Never Smoked Tobacco Have You Smoked in the Last Year: No - Immunization History Most Recent Influenza Vaccination: Feb 2015 Review of Systems All Other Systems Reviewed And Are Negative: Yes Constitutional: Negative: Fever, Chills Skin: Negative: Rash Respiratory: Negative: Shortness Of Breath Cardiovascular: Negative: Palpitations, Chest Pain Gastrointestinal: Negative: Abdominal Pain, Vomiting, Nausea Genitourinary: Positive: Negative Motor: Negative: Weakness Neurovascular: Negative: Decreased Sensation Musculoskeletal: Positive: Arthralgia - See HPI Neurological: Positive: Negative Is Patient Immunocompromised?: No Physical Exam - Summary Physical Exam Summary: GENERAL APPEARANCE: Well developed, well nourished, alert and cooperative, and appears to be in no acute distress. CARDIAC: Normal S1 and S2. No S3, S4 or murmurs. Rhythm is regular. There is no peripheral edema, cyanosis or pallor. Extremities are warm and well perfused. Capillary refill is less than 2 seconds. Peripheral pulses intact. LUNGS: Clear to auscultation without rales, rhonchi, wheezing or diminished breath sounds. ABDOMEN: Positive bowel sounds. Soft, nondistended, nontender. No guarding or rebound. No masses or hepatosplenomegally. MUSKULOSKELETAL: Normal muscular development. Normal gait. EXTREMITIES: Tenderness over the right AC joint without gross deformity, ecchymosis, erythema, or lesions. Limited ROM due to pain which was most notable with abduction, adduction, and external rotation. Circulation and sensation intact. SKIN: Skin normal color, texture and turgor with no lesions or eruptions. Triage Information Reviewed: Yes Vital Signs: Initial Vital Signs Temp 98.4 F 12/29/18 18:15 Pulse 75 12/29/18 18:15 Resp 14 12/29/18 18:15 BP 139/83 12/29/18 18:15 Pulse Ox 99 12/29/18 18:15 Vital Signs Reviewed: Yes Shoulder Course/Dx - Course Course Of Treatment: 43-year-old male presents with complaints of right shoulder pain. States 5 days ago had minor shoulder pain while weight lifting that subsided by the next day. 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 Pain persisted this morning and patient took ibuprofen 800 mg with little relief in pain. States the pain progressively worsened throughout the day. Took some acetaminophen approximately 2 hours prior to arrival with no improvement in his pain. No previous or current injury. States pain worsens with any type of movement but is especially worse with abduction and external rotation. Denies chest pain, SOB, abdominal pain, nausea , vomiting, numbness or tingling. Afebrile. Mildly hypertensive otherwise vital signs stable. Patient had tenderness over the right AC joint without gross deformity, ecchymosis, erythema, or lesions. Limited ROM due to pain which was most notable with abduction, adduction, and external rotation. Circulation and sensation intact. Remainder of exam was unremarkable. Recommending conservative treatment for a rotator cuff injury versus subacromial bursitis including naproxen 500 mg 1 tablet every 12 hours 5-7 days then every 12 hours as needed. Patient reports that he had a incident of oversedation with lorazepam in the past and we discussed that this is still a potential side effect of the hydrocodone however due to the significant pain he is experiencing he is electing to try this therefore I am also providing her with a short-term prescription for hydrocodone/acetaminophen 5 mg/325 mg 1/2-1 tablet every 8 hours as needed for severe pain. The patient was placed in a sling and instructed to use for the next 2-3 days for comfort and support. He was strongly encouraged to perform gentle range of motion exercises every 2 hours while awake. I also recommended cold therapy. Patient is to follow-up with orthopedic surgery in 3 days if his symptoms are not improving. Anticipatory guidance and warning symptoms reviewed with the patient. Verbalizes understanding and agrees with plan of care. - Differential Dx/Diagnosis Differential Diagnosis/HQI/PQRI: AC Separation, Dislocation, Fracture (Closed), Rotator Cuff Injury, Sprain Provider Diagnosis: Acute pain of right shoulder Discharge ED - Sign-Out/Discharge Documenting (check all that apply): Patient Departure All imaging exams completed and their final reports reviewed: No Studies - Discharge Plan Condition: Stable Disposition: HOME Prescriptions: Hydrocodone/Acetaminophen [Hydrocodone-Acetamin 5-325 mg] 1 each PO Q8HR PRN #6 tablet MDD 3 PRN Reason: Pain - Severe Naproxen [Naproxen 500 mg tab] 500 mg PO Q12HR #30 tablet Patient Education Materials: Shoulder Pain (ED) Referrals: Estevan Scruggs MD [Primary Care Provider] - Elian Callejas MD [Medical Doctor] - 3 Days Additional Instructions: Rest the shoulder as much as possible. Wear the sling that was applied in the clinic for the next 2-3 days for support. You may remove to sleep and shower but should wear at all other times. It is important that you remove your arm from the sling every 2 hours and perform gentle range of motion exercises as was demonstrated to you in the clinic. Avoid any heavy lifting or strenuous activity. Apply ice to the affected area for 15-20 minutes at least 4 times a day to help with the pain and swelling. Take naproxen 500 mg 1 tablet every 12 hours with food for the next 5-7 days that may take every 12 hours as needed for pain. Take hydrocodoneacetaminophen 5 mg/325 mg 1/2-1 tablet every 8 hours as needed for severe pain. This medication will cause drowsiness so do not take and drive or operate machinery. Follow up with orthopedic surgery in 3-5 days if symptoms do not improve. Seek immediate medical attention if you have severe pain not managed with pain medication, you are unable to walk or bear any weight, develop numbness or tingling in the arm, hand, or fingers, or have any worsening of symptoms. - Billing Disposition and Condition Condition: STABLE Disposition: Home
[2018-12-29] MEDS ORDERED: Naproxen TAB* 250 MG PO ONE (19:16)
== END 2018-12-29 19:40 | disposition home or self-care (01) ==
LOC: UCCORT 16:26
DX: M25.511 Pain in right shoulder (principal)
CPT/HCPCS: 99213; A9270-GY; G0463

== ENCOUNTER 2019-05-04 09:33 | Emergency (ER) | payer BC ==
--- OUTSIDE RECORDS SUMMARY | 2019-05-04 10:49 | XMS REPORT | Continuity of Care Document ---
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 Problems Description No Information Available Social History Type Date Description Comments Sex Unknown Tobacco Use Start: Unknown Never Smoked Cigarettes ETOH Use Occasionally consumes alcohol Recreational Drug Use Denies Drug Use Allergies, Adverse Reactions, Alerts Active Allergies Reaction Severity Comments Date Penicillin Hives 03/17/2019 Medications Description No Information Available Medications Administered in Office Medication SIG Qnty Indications Ordering Provider Date Depomedrol 40mg/1cc Gina Keane MD 03/17/2019 (methylprednisolone acetate) Injection Immunizations Description No Information Available Vital Signs Date Vital Result Comment 03/17/2019 10:32am BP Systolic 143 mmHg BP Diastolic 89 mmHg Heart Rate 68 /min Weight 255.25 lb O2 % BldC Oximetry 98 % Results Description No Information Available Procedures Date Code Description Status 03/17/2019 26173 Asp./Injection major joint Completed Medical Devices Description No Information Available Encounters Description No Information Available Assessments Date Code Description Provider 03/17/2019 M75.41 Impingement syndrome of right shoulder Gina Keane MD 03/17/2019 S46.001D Unspecified injury of muscle(s) and tendon(s) Gina Keane MD of the rotator cuff of right shoulder, subsequent encounter 03/17/2019 M19.011 Primary osteoarthritis, right shoulder Gina Keane MD Plan of Treatment 03/17/2019 - Gina Keane, MDM75.41 Impingement syndrome of right [id number] Unspecified injury of muscle(s) and tendon(s) of the rotator cuff of right shoulder, subsequent [id number] Primary osteoarthritis, right shoulderNew Therapy:Physical/Occupational Therapy Functional Status Description No Information Available Mental Status Description No Information Available Referrals Description No Information Available
[2019-05-04 11:10] VITALS: BP 135/90
[2019-05-04 11:22] LABS: Influenza A Molecular POSITIVE (Negative)
--- NOTE | 2019-05-04 11:26 | UC ---
FLU HPI - HPI Summary HPI Summary: 44-year-old male whose had cold symptoms for approximate 5 days and body aches. He also has a tight productive cough of yellowish sputum. - History of Current Complaint Chief Complaint: UCRespiratory Stated Complaint: COUGH,CONGESTION,CHILLS Time Seen by Provider: 05/04/19 11:04 Hx Obtained From: Patient Onset/Duration: Gradual Onset Severity Currently: Mild Severity Initially: Mild Pain Intensity: 5 Associated Signs & Symptoms: Positive: Myalgia, Cough, Sore Throat - Patient had a sore throat first 2 days of illness but that has resolved., Nasal Congestion Related Hx: Possible Flu/Infectious Exposure - Allergy/Home Medications Allergies/Adverse Reactions: Allergies Allergy/AdvReac Type Severity Reaction Status Date / Time Penicillins Allergy Rash Verified 05/04/19 10:56 codeine AdvReac Nausea Verified 05/04/19 10:56 lorazepam AdvReac Vomiting Verified 05/04/19 10:56 Home Medications: Home Medications D-Methorphan/PE/Acetaminophen [Vicks Dayquil Cold & Flu 10-5-325 mg/15Ml] 1 liq PO PRN 05/04/19 [History] Oxymetazoline 0.05% NASAL SPR* [Afrin 0.05% NASAL SPRAY*] 1 spray NASAL Q12H PRN 05/04/19 [History Confirmed 05/04/19] Phenylephrine/Dm/Acetaminop/GG [Mucinex Fast-Max Cold-Flu Liq] 20 ml PO PRN [History] Phenylephrine/Dm/Acetaminop/GG [Tylenol Cold-Flu Severe Caplet] 12 each PO PRN 05/04/19 [History] PMH/Surg Hx/FS Hx/Imm Hx Previously Healthy: Yes Other History Of: Negative For: HIV, Hepatitis B, Hepatitis C, Anticoagulant Therapy - Surgical History Surgical History: Yes Surgery Procedure, Year, and Place: Left arm lumps age 20 - Family History Known Family History: Positive: Cardiac Disease, Hypertension, Diabetes - Social History Alcohol Use: Rare Substance Use Type: None Smoking Status (MU): Never Smoked Tobacco Have You Smoked in the Last Year: No - Immunization History Most Recent Influenza Vaccination: Feb 2015 Review of Systems All Other Systems Reviewed And Are Negative: Yes Constitutional: Positive: Fever, Chills ENT: Positive: Sore Throat, Nasal Discharge Respiratory: Positive: Cough Is Patient Immunocompromised?: No Physical Exam Triage Information Reviewed: Yes Appearance: Well-Appearing, No Pain Distress, Well-Nourished Vital Signs: Initial Vital Signs Temp 98.6 F 05/04/19 11:00 Pulse 73 05/04/19 11:00 Resp 16 05/04/19 11:00 BP 135/90 05/04/19 11:00 Pulse Ox 100 05/04/19 11:00 Vital Signs Reviewed: Yes Eyes: Positive: Conjunctiva Clear ENT: Positive: Pharynx normal, Nasal congestion, Nasal drainage - Clear nasal coryza, TMs normal, Uvula midline Neck: Positive: Supple, Nontender, No Lymphadenopathy Respiratory: Positive: No respiratory distress, No accessory muscle use, Rhonchi , Wheezing - Scattered rhonchi and wheezing with forced expiration. No distress Cardiovascular: Positive: RRR, No Murmur, Pulses Normal, Brisk Capillary Refill Musculoskeletal Exam: Normal Neurological Exam: Normal Psychological Exam: Normal Skin Exam: Normal Flu Course/Dx - Course Course Of Treatment: DuoNeb treatment: Patient felt much better following the DuoNeb treatment and his lungs were completely clear following that. He felt like he could take a much deeper breath. Rapid flu test: Positive Chest x-ray:FINDINGS: CARDIOMEDIASTINAL SILHOUETTE: The cardiomediastinal silhouette is normal. LAKSHMI: The lakshmi are normal. PLEURA: The costophrenic angles are sharp. No pleural abnormalities are noted. LUNG PARENCHYMA: The lungs are clear. ABDOMEN: The upper abdomen is clear. There is no subphrenic gas. BONES AND SOFT TISSUES: No bone or soft tissue abnormalities are noted. OTHER: None. IMPRESSION: NO ACTIVE CARDIOPULMONARY DISEASE. - Differential Dx/Diagnosis Provider Diagnosis: Bronchitis, Influenza Discharge ED - Sign-Out/Discharge Documenting (check all that apply): Patient Departure All imaging exams completed and their final reports reviewed: Yes - Discharge Plan Condition: Good Disposition: HOME Prescriptions: predniSONE 10 mg TAB [Deltasone 10 MG TAB*] 10 mg PO DAILY 12 Days #30 tab Patient Education Materials: Influenza (DC), Acute Bronchitis (ED) Forms: *Work Release Referrals: Sony Pyle MD [Primary Care Provider] - Additional Instructions: Rest, increase fluids, take the prednisone with food. Follow-up with Dr. Malakar if no improvement by the end of the week. - Billing Disposition and Condition Condition: GOOD Disposition: Home
[2019-05-04] MEDS ORDERED: Albuterol/Ipratropium NEB.SOL* Albuterol 2.5 MG/Ipratropium 0.5 MG 3 ML INH ONE (11:29)
== END 2019-05-04 12:39 | disposition home or self-care (01) ==
LOC: UCCORT 09:33
DX: J40 Bronchitis, not specified as acute or chronic (principal); J11.1 Influenza due to unidentified influenza virus with other respiratory manifestations; Z88.0 Allergy status to penicillin; Z88.5 Allergy status to narcotic agent; Z88.8 Allergy status to other drugs, medicaments and biological substances
CPT/HCPCS: 71046; 99212; A9270-GY; G0463